=== PATIENT | male | born 1980 | race Caucasian/White ===

== ENCOUNTER 2021-01-14 20:51 | Inpatient (IN) | payer OTHER, SELFPAY ==
[~2021-01-14] VITALS: Ht 177.8 cm; Wt 112.9 kg
[2021-01-14 21:00] VITALS: BP_SYST 107
[2021-01-14] MEDS ORDERED: AZITHROMYCIN 500 MG in D5W 250 ML IV ONE (22:30)
[2021-01-14] MEDS ORDERED: cefTRIAXone 1 GM IVPB PREMIX 50 ML IV ONE (22:30)
[2021-01-14] MEDS ORDERED: IPRATROPIUM/ALBUTEROL SULFATE 3 ML AMPUL.NEB (DUONEB) INH ONE (22:30)
[2021-01-14] MEDS ORDERED: NS 1000 ML IV.SOLN IV ONE (22:30)
[2021-01-14 22:33] LABS: BASOPHILS % (AUTO) 0.2 % (0.0-2.0); EOSINOPHILS % (AUTO) 0.1 % (0.0-4.0); HEMOGLOBIN 18.9 g/dL (14.0-18.0); LYMPHOCYTES # (AUTO) 1.1 K/uL (1.0-5.5); LYMPHOCYTES % (AUTO) 11.5 % (20.5-51.5); MEAN CORPUSCULAR HEMOGLOBIN 29 pg (27-31); MEAN CORPUSCULAR HGB CONC 34 % (32-36); MEAN CORPUSCULAR VOLUME 85 fL (79.0-98.0); MONOCYTES # (AUTO) 0.5 K/uL (0.0-1.0); MONOCYTES % (AUTO) 5.1 % (1.7-9.3); NEUTROPHILS % (AUTO) 83.1 % (40.0-70.0); PLATELET COUNT (AUTO) 139 K/uL (130-430); RED CELL DISTRIBUTION WIDTH 14.9 % (9.0-15.0); WHITE BLOOD COUNT (AUTO) 9.6 K/uL (4.8-10.8)
[2021-01-14] MEDS ORDERED: DEXAMETHASONE SOD PHOSPHATE 10 MG/ML VIAL IVP ONE (22:45)
[2021-01-14 22:47] LABS: CALCIUM 8.2 mg/dL (8.4-11.0); CREATININE 1.05 mg/dL (0.55-1.30)
[2021-01-14 22:52] LABS: ALBUMIN 2.9 g/dL (3.4-4.8); TOTAL BILIRUBIN 1.1 mg/dL (0.0-1.0)
[2021-01-14] MEDS ORDERED: AZITHROMYCIN 500 MG/VIAL (ZITHROMAX) IV ONE (23:05)
[2021-01-14 23:52] LABS: INR 1.1 (0.80-1.20)
[2021-01-15] MEDS ORDERED: ASCO125T PO (00:08)
[2021-01-15 00:46] LABS: BILIRUBIN,URINE 1+ (NEGATIVE); BLOOD, URINE NEGATIVE (NEGATIVE); CLARITY/URINE CLEAR (CLEAR); COLOR,URINE YELLOW (YELLOW); GLUCOSE,URINE NEGATIVE (NEGATIVE); KETONES,URINE 2+ (NEGATIVE); LEUKOCYTE ESTERASE ,URINE NEGATIVE (NEGATIVE); NITRITE, URINE NEGATIVE (NEGATIVE); PROTEIN URINE 1+ (NEGATIVE)
[2021-01-15 00:50] LABS: UROBILINOGEN,URINE >=8 (0.2-1.0)
[2021-01-15 00:51] LABS: BACTERIA,URINE RARE /HPF (None Seen); RBC,URINE 0-3 /HPF (0-3); WBC,URINE 0-3 /HPF (0-3)
[2021-01-15] MEDS ORDERED: IBUPROFEN 600 MG TABLET PO ONE (01:15)
[2021-01-15] MEDS ORDERED: HYDROcodone/ACETAMIN 5-325 MG TAB (NORCO/ VICODIN) PO ONE (01:15)
[2021-01-15] MEDS ORDERED: ALBUTEROL MDI INHALATION 8 GM INH INH PRN (04:00)
[2021-01-15] MEDS ORDERED: KCL 20 mEq in D5NS 1000 mL 1,000 ML IV SCH (04:00)
[2021-01-15] MEDS ORDERED: ALBUTEROL SULFATE 0.083% 2.5 MG/3 ML VIAL.NEB INH PRN (07:30)
[2021-01-15] MEDS ORDERED: DEXAMETHASONE SOD PHOSPHATE 4 MG/ML VIAL IVP SCH (09:00)
[2021-01-15] MEDS ORDERED: AZITHROMYCIN 500 MG in NS 250 ML IV SCH (09:00)
[2021-01-15] MEDS ORDERED: cefTRIAXone 1 GM IVPB PREMIX 50 ML IV SCH (09:00)
[2021-01-15] MEDS: ASCORBIC ACID 500 MG TABLET PO SCH ×2 (11:30→20:17)
[2021-01-15] MEDS: ENOXAPARIN SODIUM 40 MG/0.4 ML SYRINGE SUBCUT SCH ×2 (11:30→20:18)
[2021-01-15] MEDS: CHOLECALCIFEROL (VITAMIN D3) 5,000 UNIT TABLET PO SCH (11:31)
[2021-01-15] MEDS: DEXAMETHASONE SOD PHOSPHATE 10 MG/ML VIAL IVP SCH (11:32)
[2021-01-15] MEDS: BARICITINIB -Non-Formulary 2 MG TABLET PO SCH (11:32)
[2021-01-15 12:00] VITALS: BP_SYST 140
[2021-01-15 12:13] VITALS: BP_SYST 146
[2021-01-15 16:00] VITALS: BP_SYST 120
[2021-01-15] MEDS: AZITHROMYCIN 500 MG in NS 250 ML IV SCH (16:34)
[2021-01-15] MEDS: KCL 20 mEq in D5NS 1000 mL 1,000 ML IV SCH ×2 (16:36→19:00)
[2021-01-15] MEDS: cefTRIAXone 1 GM IVPB PREMIX 50 ML IV SCH (18:06)
[2021-01-15 20:00] VITALS: BP_SYST 124
[2021-01-16] VITALS: BP_SYST 117
[2021-01-16] MEDS: KCL 20 mEq in D5NS 1000 mL 1,000 ML IV SCH ×3 (06:40→16:56)
[2021-01-16] MEDS ORDERED: ACETAMINOPHEN 325 MG TABLET PO PRN (07:30)
[2021-01-16 07:46] LABS: ALBUMIN 2.2 g/dL (3.4-4.8); CALCIUM 7.8 mg/dL (8.4-11.0); CREATININE 0.82 mg/dL (0.55-1.30); POTASSIUM 3.9 mmol/L (3.5-5.1); TOTAL BILIRUBIN 0.6 mg/dL (0.0-1.0)
[2021-01-16] MEDS: ASCORBIC ACID 500 MG TABLET PO SCH ×2 (07:54→20:18)
[2021-01-16] MEDS: CHOLECALCIFEROL (VITAMIN D3) 5,000 UNIT TABLET PO SCH (07:54)
[2021-01-16] MEDS: DEXAMETHASONE SOD PHOSPHATE 10 MG/ML VIAL IVP SCH (07:54)
[2021-01-16] MEDS: BARICITINIB -Non-Formulary 2 MG TABLET PO SCH (07:55)
[2021-01-16] MEDS: ENOXAPARIN SODIUM 40 MG/0.4 ML SYRINGE SUBCUT SCH ×2 (07:56→20:18)
[2021-01-16 08:00] VITALS: BP_SYST 135
[2021-01-16 12:00] VITALS: BP_SYST 129
[2021-01-16 16:00] VITALS: BP_SYST 128
[2021-01-16] MEDS: AZITHROMYCIN 500 MG in NS 250 ML IV SCH (16:56)
[2021-01-16 20:00] VITALS: BP_SYST 124
[2021-01-16] MEDS ORDERED: TEMAZEPAM 7.5 MG CAPSULE PO PRN (23:30)
[2021-01-17] VITALS: BP_SYST 117
[2021-01-17] MEDS: cefTRIAXone 1 GM IVPB PREMIX 50 ML IV SCH ×2 (06:04→18:55)
[2021-01-17] MEDS: KCL 20 mEq in D5NS 1000 mL 1,000 ML IV SCH ×2 (06:49→20:13)
[2021-01-17 08:00] VITALS: BP_SYST 124
[2021-01-17 08:46] LABS: ALBUMIN 2.2 g/dL (3.4-4.8); CREATININE 0.86 mg/dL (0.55-1.30); POTASSIUM 3.9 mmol/L (3.5-5.1); TOTAL BILIRUBIN 0.6 mg/dL (0.0-1.0)
[2021-01-17 10:03] LABS: BASOPHILS % (AUTO) 0.1 % (0.0-2.0); HEMATOCRIT 48.9 % (36-54); HEMOGLOBIN 16.5 g/dL (14.0-18.0); LYMPHOCYTES # (AUTO) 1.3 K/uL (1.0-5.5); LYMPHOCYTES % (AUTO) 9.6 % (20.5-51.5); MEAN CORPUSCULAR HEMOGLOBIN 29 pg (27-31); MEAN CORPUSCULAR HGB CONC 34 % (32-36); MEAN CORPUSCULAR VOLUME 85 fL (79.0-98.0); MONOCYTES # (AUTO) 1.5 K/uL (0.0-1.0); MONOCYTES % (AUTO) 10.8 % (1.7-9.3); NEUTROPHILS # (AUTO) 10.8 K/uL (1.8-7.7); NEUTROPHILS % (AUTO) 79.5 % (40.0-70.0); PLATELET COUNT (AUTO) 218 K/uL (130-430); RED BLOOD CELL COUNT(AUTO) 5.73 MIL/uL (4.2-6.2); RED CELL DISTRIBUTION WIDTH 15.2 % (9.0-15.0); WHITE BLOOD COUNT (AUTO) 13.6 K/uL (4.8-10.8)
[2021-01-17] MEDS: CHOLECALCIFEROL (VITAMIN D3) 5,000 UNIT TABLET PO SCH (10:14)
[2021-01-17] MEDS: ASCORBIC ACID 500 MG TABLET PO SCH ×2 (10:16→20:12)
[2021-01-17] MEDS: ENOXAPARIN SODIUM 40 MG/0.4 ML SYRINGE SUBCUT SCH ×2 (10:17→20:13)
[2021-01-17] MEDS: DEXAMETHASONE SOD PHOSPHATE 10 MG/ML VIAL IVP SCH (10:19)
[2021-01-17] MEDS: BARICITINIB -Non-Formulary 2 MG TABLET PO SCH (10:20)
[2021-01-17 16:17] VITALS: BP_SYST 126
[2021-01-17] MEDS: AZITHROMYCIN 500 MG in NS 250 ML IV SCH (17:59)
[2021-01-17 20:07] VITALS: BP_SYST 122
[2021-01-18 00:22] VITALS: BP_SYST 126
[2021-01-18] MEDS: KCL 20 mEq in D5NS 1000 mL 1,000 ML IV SCH ×2 (05:58→18:30)
[2021-01-18 07:39] LABS: ALBUMIN 2.2 g/dL (3.4-4.8); CALCIUM 8.1 mg/dL (8.4-11.0); CREATININE 0.84 mg/dL (0.55-1.30); POTASSIUM 3.9 mmol/L (3.5-5.1); TOTAL BILIRUBIN 0.7 mg/dL (0.0-1.0)
[2021-01-18 08:00] VITALS: BP_SYST 138
[2021-01-18] MEDS: DEXAMETHASONE SOD PHOSPHATE 10 MG/ML VIAL IVP SCH (09:49)
[2021-01-18] MEDS: CHOLECALCIFEROL (VITAMIN D3) 5,000 UNIT TABLET PO SCH (09:49)
[2021-01-18] MEDS: ENOXAPARIN SODIUM 40 MG/0.4 ML SYRINGE SUBCUT SCH ×2 (09:50→20:37)
[2021-01-18] MEDS: ASCORBIC ACID 500 MG TABLET PO SCH ×2 (09:50→20:35)
[2021-01-18] MEDS: BARICITINIB -Non-Formulary 2 MG TABLET PO SCH (09:51)
[2021-01-18 12:00] VITALS: BP_SYST 124
[2021-01-18 16:00] VITALS: BP_SYST 132
[2021-01-18] MEDS: AZITHROMYCIN 500 MG in NS 250 ML IV SCH ×2 (17:00→23:37)
[2021-01-18] MEDS: cefTRIAXone 1 GM IVPB PREMIX 50 ML IV SCH ×3 (18:00→23:39)
[2021-01-18 20:00] VITALS: BP_SYST 127
[2021-01-19 00:45] VITALS: BP_SYST 124
[2021-01-19] MEDS: KCL 20 mEq in D5NS 1000 mL 1,000 ML IV SCH ×3 (03:00→21:20)
[2021-01-19 07:38] LABS: ALBUMIN 2.2 g/dL (3.4-4.8); CALCIUM 8.1 mg/dL (8.4-11.0); CREATININE 0.83 mg/dL (0.55-1.30); POTASSIUM 3.9 mmol/L (3.5-5.1); TOTAL BILIRUBIN 0.6 mg/dL (0.0-1.0)
[2021-01-19 08:00] VITALS: BP_SYST 114
[2021-01-19] MEDS: ASCORBIC ACID 500 MG TABLET PO SCH ×2 (08:53→21:19)
[2021-01-19] MEDS: CHOLECALCIFEROL (VITAMIN D3) 5,000 UNIT TABLET PO SCH (08:53)
[2021-01-19] MEDS: DEXAMETHASONE SOD PHOSPHATE 10 MG/ML VIAL IVP SCH (08:54)
[2021-01-19] MEDS: BARICITINIB -Non-Formulary 2 MG TABLET PO SCH (08:55)
[2021-01-19] MEDS: ENOXAPARIN SODIUM 40 MG/0.4 ML SYRINGE SUBCUT SCH ×2 (08:55→21:19)
[2021-01-19 10:39] VITALS: BP_SYST 114
[2021-01-19] MEDS ORDERED: ALBUTEROL MDI INHALATION 8 GM INH INH PRN (12:15)
[2021-01-19 16:00] VITALS: BP_SYST 131
[2021-01-19] MEDS: AZITHROMYCIN 500 MG in NS 250 ML IV SCH (17:09)
[2021-01-19] MEDS: cefTRIAXone 1 GM IVPB PREMIX 50 ML IV SCH (18:16)
[2021-01-19 19:00] VITALS: BP_SYST 102
[2021-01-19 20:00] VITALS: BP_SYST 102
[2021-01-20] VITALS: BP_SYST 112
[2021-01-20 08:00] VITALS: BP_SYST 123
[2021-01-20] MEDS: CHOLECALCIFEROL (VITAMIN D3) 5,000 UNIT TABLET PO SCH (08:03)
[2021-01-20] MEDS: ASCORBIC ACID 500 MG TABLET PO SCH (08:03)
[2021-01-20] MEDS: ENOXAPARIN SODIUM 40 MG/0.4 ML SYRINGE SUBCUT SCH (08:04)
[2021-01-20] MEDS: BARICITINIB -Non-Formulary 2 MG TABLET PO SCH (08:04)
[2021-01-20] MEDS: DEXAMETHASONE SOD PHOSPHATE 10 MG/ML VIAL IVP SCH (08:05)
[2021-01-20] MEDS: KCL 20 mEq in D5NS 1000 mL 1,000 ML IV SCH (12:10)
[2021-01-20 12:11] VITALS: BP_SYST 119
[2021-01-20 16:00] VITALS: BP_SYST 131
== END 2021-01-20 16:45 | disposition home or self-care (01) | DRG 177 ==
LOC: SED 20:51 → SIC 01-15 03:57 → STU 01-15 10:43
PROVIDERS: ADMIT Family Medicine; ATTEND Family Medicine
PROC: XW033E5 Introduction of Remdesivir Anti-infective into Peripheral Vein, Percutaneous Approach, New Technology Group 5 (ICD-10-PCS; principal; 2021-01-15)
DX: U07.1 COVID-19 (principal); J96.01 Acute respiratory failure with hypoxia; J12.82 Pneumonia due to coronavirus disease 2019; E66.9 Obesity, unspecified; Z68.35 Body mass index [BMI] 35.0-35.9, adult
CPT/HCPCS: 36415; 71045; 80053; 81000; 82728; 83605; 84484; 85025; 85379; 85610-TC; 85730-TC; 86140; 87040-TC; 87081; 87086; 93005; 94640; 94760; 96365; 96368; 96375; 99291; G0378; J0456; J0696; J1100; J1650; J7050; U0003